=== PATIENT | male | born 1995 | race Caucasian/White ===

== ENCOUNTER 2022-12-15 23:40 | Observation (INO) ==
[2022-12-16] MEDS ORDERED: Propofol 10 MG/ML 20 ML BTL IV PUSH ONE (00:04)
[2022-12-16] MEDS ORDERED: Morphine 10 MG/ML VIAL (1 ml) IV ONE (00:06)
[2022-12-16] MEDS ORDERED: Ondansetron 4 mg VIAL 2 MG/ML 2 ml VIAL IV PRN (03:55)
[2022-12-16] MEDS ORDERED: Prochlorperazine 5 mg/ml 2 ml VIAL (10 mg) IV PRN (08:52)
[2022-12-16 19:21] VITALS: BP 126/78
== END 2022-12-16 19:18 | disposition home or self-care (01) ==
LOC: ED 23:40 → EDHOLD 23:40 → SUATTDRO 12-16 00:43 → EDHOLD 12-16 15:19
PROVIDERS: ADMIT Student in an Organized Health Care Education/Training Program; ATTEND Internal Medicine